=== PATIENT | female | born 1985 | race Caucasian/White ===

== ENCOUNTER 2018-04-22 18:54 | Emergency (ER) | payer BC ==
[2018-04-22] MEDS ORDERED: Ketorolac 60 MG/2 ML SDV IM ONE (19:29)
--- NOTE | 2018-04-22 19:34 | EDM.PDOC ---
ED HPI GENERAL MEDICAL PROBLEM - General Chief Complaint: Back Pain or Injury Stated Complaint: back pain Time Seen by Provider: 04/22/18 19:16 - History of Present Illness INITIAL COMMENTS - FREE TEXT/NARRATIVE: HISTORY AND PHYSICAL: History of present illness: The patient is a 32-year-old female with no stated medical problems and presents with lumbar back pain more on the left side that started about 24 hours ago. 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 The pain is localized in the lumbar area and does not radiate to her legs and she has no abdominal pain no weakness in her legs no neurosensory changes and no bowel or bladder disturbances. The patient denies that she had direct trauma to the area. In the past she has received medications which improved the pain. Today she took a diclofenac which was and it did not help. Patient also tells me that she started working out with a certified personal trainer in the last one month and they've been doing exercise she has never done before. She denies . She says the pain is worse with position changing. The patient has seen a chiropractor in the past and says the last time she hurt her back was in July 2017 and on both occasions she had x-rays which were normal. Review of systems: As per history of present illness and below otherwise all systems reviewed and negative. Past medical history: As per history of present illness and as reviewed below otherwise noncontributory. Surgical history: As per history of present illness and as reviewed below otherwise noncontributory. Social history: No reported history of drug or alcohol abuse. Family history: As per history of present illness and as reviewed below otherwise noncontributory. Physical exam: General: Well-developed well-nourished female who is nontoxic and prefers to stand as this is the position of comfort. HEENT: Atraumatic, normocephalic, negative for conjunctival pallor or scleral icterus, mucous membranes moist, throat clear, neck supple, nontender, trachea midline. Lungs: Clear to auscultation, breath sounds equal bilaterally, chest nontender. Heart: S1S2, regular rate and rhythm no overt murmurs Abdomen: Soft, nondistended, nontender. NABS Negative for costovertebral tenderness. Pelvis: Stable nontender. Genitourinary: Deferred. Rectal: Deferred. Extremities: Atraumatic, Neurovascular unremarkable. Full range of motion without defects or deficits Neuro: Awake, alert, oriented. Cranial nerves II through XII unremarkable. Cerebellum unremarkable. Motor and sensory unremarkable throughout. Exam nonfocal. Back: There are no midline step-offs tenderness defects of the thoracic spine no posterior rib tenderness. There is some SI joint tenderness on the left and some reproducible musculoskeletal tenderness on the left lumbar area but there are no defects or deformities. Diagnostics: As patient has had x-rays within the last 12 months we will not repeat those and she did not have any direct trauma. She is comfortable with this Therapeutics: Toradol and Norflex Impression: lumbar back pain Definitive disposition and diagnosis as appropriate pending reevaluation and review of above. Treatments SURVEY ASSOCIATE: Reports: NSAIDS low back Pain Score (Numeric/FACES): 8 - Related Data Allergies Allergy/AdvReac Type Severity Reaction Status Date / Time Sulfa (Sulfonamide Allergy Hives Verified 04/22/18 19:09 Antibiotics) Home Meds: Home Meds LORazepam 1 tab PO ASDIRECTED PRN 04/22/18 [History] Venlafaxine HCl [Venlafaxine ER] 0 mg PO DAILY 04/22/18 [History] Past Medical History Psychiatric History: Reports: Anxiety - Past Surgical History Musculoskeletal Surgical History: Reports: Other (See Below) Other Musculoskeletal Surgeries/Procedures:: hand sx Social & Family History - Family History Family Medical History: Noncontributory - Tobacco Use Smoking Status *Q: Never Smoker - Recreational Drug Use Recreational Drug Use: No ED ROS GENERAL - Review of Systems Review Of Systems: ROS reveals no pertinent complaints other than HPI. ED EXAM, GENERAL - Physical Exam Exam: See Below (see dictation) Course - Vital Signs Last Recorded V/S: Last Vital Signs Temp 36.4 C 04/22/18 19:00 Pulse 88 04/22/18 19:00 Resp 16 04/22/18 19:00 BP 118/71 04/22/18 19:00 Pulse Ox 99 04/22/18 19:00 - Orders/Labs/Meds Orders: Active Orders 24 hr Category Date Time Status Ketorolac [Toradol] Med 04/22/18 19:29 Once 60 mg IM ONETIME ONE Orphenadrine [Norflex] Med 04/22/18 19:29 Once 60 mg IM ONETIME ONE Medication Orders Ketorolac Tromethamine (Toradol) 60 mg IM ONETIME ONE Stop: 04/22/18 19:30 Orphenadrine Citrate (Norflex) 60 mg IM ONETIME ONE Stop: 04/22/18 19:30 Meds: Medications Generic Name Dose Route Start Last Admin Trade Name Sergio PRN Reason Stop Dose Admin Ketorolac Tromethamine 60 mg 04/22/18 19:29 Toradol IM 04/22/18 19:30 ONETIME ONE Orphenadrine Citrate 60 mg 04/22/18 19:29 Norflex IM 04/22/18 19:30 ONETIME ONE Departure - Departure Time of Disposition: 19:33 Disposition: Home, Self-Care 01 Condition: Good Clinical Impression: Lumbar back pain - Discharge Information Referrals: Bandar Castorena MD [Primary Care Provider] - Additional Instructions: The following information is given to patients seen in the emergency department who are being discharged to home. This information is to outline your options for follow-up care. We provide all patients seen in our emergency department with a follow-up referral. The need for follow-up, as well as the timing and circumstances, are variable depending upon the specifics of your emergency department visit. If you don't have a primary care physician on staff, we will provide you with a referral. We always advise you to contact your personal physician following an emergency department visit to inform them of the circumstance of the visit and for follow-up with them and/or the need for any referrals to a consulting specialist. The emergency department will also refer you to a specialist when appropriate. This referral assures that you have the opportunity for followup care with a specialist. All of these measure are taken in an effort to provide you with optimal care, which includes your followup. Under all circumstances we always encourage you to contact your private physician who remains a resource for coordinating your care. When calling for followup care, please make the office aware that this follow-up is from your recent emergency room visit. If for any reason you are refused follow-up, please contact the [facility] emergency department at and ask to speak to the emergency department charge nurse. [address] [place] [address] These contact her provider Dr. Castorena at [facility] and be seen in the next few days for reevaluation of our care plan. Please use ice for the next 24 hours then switch to heat and try to stretch and open up your back gently. Use medications for pain as prescribed but only take the muscle relaxer and pain pill when you are at home. Return to ER as needed and as discussed - My Orders Last 24 Hours: My Active Orders 04/22/18 19:29 Ketorolac [Toradol] 60 mg IM ONETIME ONE Orphenadrine [Norflex] 60 mg IM ONETIME ONE - Assessment/Plan Last 24 Hours: My Active Orders 04/22/18 19:29 Ketorolac [Toradol] 60 mg IM ONETIME ONE Orphenadrine [Norflex] 60 mg IM ONETIME ONE
== END 2018-04-22 19:59 | disposition home or self-care (01) ==
LOC: MW.ED 18:54
DX: M54.5 Low back pain (principal); F41.9 Anxiety disorder, unspecified; Z88.2 Allergy status to sulfonamides; Z79.899 Other long term (current) drug therapy
CPT/HCPCS: 96372; 99283; J1885; J2360

== ENCOUNTER 2022-02-04 13:49 | Emergency (ER) | payer BC ==
[2022-02-04] MEDS ORDERED: Sodium Chloride 0.9% 1,000 ML IV ONE (14:35)
[2022-02-04 15:06] LABS: BLOOD UREA NITROGEN,BUN 11 mg/dL (7.0-18.0); CARBON DIOXIDE,CO2 26.1 mmol/L (21.0-32.0); CHLORIDE,CL 103 mmol/L (98-107); GLUCOSE RANDOM 111 mg/dL (74-106); POTASSIUM,K 3.9 mmol/L (3.5-5.1); SODIUM,NA 137 mmol/L (136-145)
[2022-02-04] MEDS ORDERED: Iopamidol 755 Mg/ML 100 ML Bottle IVPUSH ONE (16:29)
== END 2022-02-04 21:42 | disposition home or self-care (01) ==
LOC: MW.ED 13:49
DX: R55 Syncope and collapse (principal); D64.9 Anemia, unspecified; Z88.2 Allergy status to sulfonamides
CPT/HCPCS: 36415; 36430; 70450; 74177; 80053; 81025; 85025; 86850; 86900; 86901; 86920; 93005; 99285; J7030; P9016; Q9967; 93010; 99283